=== PATIENT | female | born 1965 | race African-American/Black ===

== ENCOUNTER 2024-11-25 13:48 | Emergency (ER) | payer SELFPAY ==
[2024-11-25 14:00] VITALS: BP 153/88; PULSE 74; RESP 20; TEMP 36.8; O2SAT 100
--- NOTE | 2024-11-25 14:18 | ED.UPPEXIN ---
HPI - Extremity Injury (Upper) General Chief Complaint: Extremity Injury, Upper Stated Complaint: Left Arm Pain Time Seen by Provider: 11/25/24 14:18 Source: patient Mode of arrival: ambulatory Limitations: no limitations History of Present Illness HPI narrative: 59 yo F presents with pain to L side of neck radiating down arm. Pain for 1 month. Started after using large electrical floor cleaning at [employer]. 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 Since then has not used this machine but reports every time she has to sweep or vaccum it aggravates pain. Has not been to work in 4 days. Has not seen her PCP for this pain. States that her surgeon that did cervical fusion retired. Thinks she needs MRI. denies numbness/tinlging, weakness. all systems reviewed and negative except as noted above. Related Data Allergies Allergy/AdvReac Type Severity Reaction Status Date / Time No Known Allergies Allergy Verified 11/25/24 14:02 [facility] Family History Family History (Updated 10/02/15 @ 23:19 by DOCTOR UNKNOWN) Mother Hypertension Family history of diabetes mellitus in first degree relative Father Family history of malignant neoplasm Sibling Family history of diabetes mellitus in first degree relative Social History Social History Smoking status: Never smoker Alcohol intake: never Comments At time of signature, agree with nursing past medical, surgical, social and family history. There is no relevant family history pertinent to the presenting complaint. Exam Narrative: GENERAL: This is a well-nourished, well-developed patient, in no apparent distress. HEAD: normocephalic, atraumatic. EYES: PERRL. Sclera clear/white. Vision is grossly intact. EARS: External ears normal, auditory canals clear and without drainage, TMs normal without perforation. Hearing grossly intact. NOSE: External nose normal with no obvious nasal discharge, nares without redness, no rhinorrhea. THROAT: Mucous membranes moist, posterior pharynx clear. NECK: left trapezius muscle is tender on palpation with spasm. No midline tenderness. No lymphadenopathy, masses or thyromegaly. CARDIOVASCULAR: Regular rate and rhythm without murmurs, gallops, or rubs. RESPIRATORY: Clear to auscultation. Breath sounds equal bilaterally. No wheezes, rales, or rhonchi. SKIN: warm, Dry, intact with no suspicious lesions or rash, good texture and turgor. NEURO: awake, alert, and oriented to person, place and time. There were no obvious focal neurologic abnormalities. EXTREMITIES: Normal range of motion to left upper extremity. Extremity strength is 5/5. CMS intact Course Course Level of Care: Express Care Visit Vital Signs Vital signs: Vital Signs Temperature 36.8 C 11/25/24 14:00 Pulse Rate 74 11/25/24 14:00 Respiratory Rate 20 11/25/24 14:00 Blood Pressure 153/88 H 11/25/24 14:00 Pulse Oximetry 100 11/25/24 14:00 Oxygen Delivery Room Air 11/25/24 14:00 Temperature 36.8 C 11/25/24 14:00 Pulse Rate 74 11/25/24 14:00 Respiratory Rate 20 11/25/24 14:00 Blood Pressure 153/88 H 11/25/24 14:00 Pulse Oximetry 100 11/25/24 14:00 Oxygen Delivery Room Air 11/25/24 14:00 reviewed MDM - Extremity Injury (Upper) MDM Narrative Medical decision making narrative: will treat neck and left upper extremity pain with steroids and muscle relaxant. Recommend ibuprofen or Tylenol. Recommend stretching. Recommend follow-up with primary care physician for further evaluation. Patient voiced understanding. Discharge Plan Discharge Clinical Impression: Strain of muscle, fascia and tendon at neck level, initial encounter Patient Disposition: Home Condition: Stable Instructions: Cervical Strain (ED) Additional Instructions: Take medications as prescribed. Methocarbamol may make you drowsy. Do not drive while taking this medication. Alternate between ice and heat. Follow-up with your primary care physician for further evaluation of your pain. Patient Language: Grenadian Prescriptions: New methocarbamol 500 mg tablet 500 mg PO Q6H PRN (Reason: muscle pain/spasm) Qty: 30 0RF methylprednisolone [Medrol (Ck)] 4 mg tablets,dose pack See Rx Instructions PO .COMPLEX Qty: 21 0RF Rx Instructions: orally per package directions Follow-up/Referrals: Jacob Marcelino MD [Primary Care Provider, Hospitalist] Stand Alone Forms: Work/School Release IP Time of Disposition: 14:29
== END 2024-11-25 14:45 | disposition home or self-care (01) ==
PROVIDERS: Emergency Provider Nurse Practitioner Family; PCP Internal Medicine
DX: S16.1XXA Strain of muscle, fascia and tendon at neck level, initial encounter (principal); X58.XXXA Exposure to other specified factors, initial encounter; Y99.0 Civilian activity done for income or pay
CPT/HCPCS: 99213; G0463